=== PATIENT | female | born 1940 | race Caucasian/White ===

== ENCOUNTER 2020-10-18 16:54 | Emergency (ER) | payer OTHER ==
[~2020-10-18 16:54] MED LIST: ALAVERT10 MG PO; ANTIVERT 25MG T25 MG PO; ASPIR 8181 MG PO; AUGMENTIN 875-1 EACH PO; CARVEDILOL12.5 MG PO; CATAPRES 0.1MG0.1 MG PO; CEFUROXIME250 MG PO; COLACE 100MG C100 MG PO; COREG 12.5MG12.5 MG PO; COREG 3.125M3.125 MG PO; DICLOFENAC SODI25 MG PO; FEOSOL ELI220 MG/5 M PO; FEOSOL325 MG PO; HYDROCHLOROTHIA25 MG PO; HYDROXYZINE HCL10 MG PO; K-DUR TAB 20 M20 MEQ PO; K-TAB ER20 MEQ PO; LASIX40 MG PO; LINZESS145 MCG PO; LOPRESSOR 25 MG25 MG PO; MACROBID 100 M100 MG PO; MAG-OX 400 TAB400 MG PO; MELOXICAM7.5 MG PO; METFORMIN HCL500 M2 PO; MULTIVITAM9 MG/15 ML PO; MYCOSTATIN OINT15 GM EXT; MYRBETRIQ50 MG PO; NEURONTIN 300300 MG PO; NEURONTIN300 MG PO; NORVASC 5 MG TAB5 MG PO; PEPCID20 MG PO; POTASSIUM CHLO10 ME1 PO; POTASSIUM CHLO20 ME2 PO; PRAVASTATIN SOD20 MG PO; PRINIVIL10 MG PO; PROMETHAZINE HC25 M1 PO; PROMETHAZINE12.5 M1 PO; PROTONIX40 MG PO; SERTRALINE HCL100 MG PO; SINGULAIR10 MG PO; SYNTHROID100 MCG PO; TRAMADOL HCL50 MG PO; TYLENOL 325MG325 MG PO; VITAMIN D10000 UNIT PO; VOLTAREN EC 5050 MG PO; ZANAFLEX4 MG PO; ZITHROMAX250 MG PO; ZOFRAN ODT 4 MG4 MG SL; ZOFRAN4 MG PO; ZOLOFT50 MG PO; ZYVOX 600 MG T600 MG PO
[2020-10-18 17:52] LABS: HEMOGLOBIN 10.9 gm/dl (12.3-15.3); RED BLOOD COUNT 3.43 M/UL (4.00-5.10); WHITE BLOOD COUNT 8.1 K/UL (4.5-11.0)
== END 2020-10-19 04:55 | disposition short-term general hospital (02) ==
LOC: ER1 16:54
PROVIDERS: Emergency Medicine
DX: K92.2 Gastrointestinal hemorrhage, unspecified (principal); R10.9 Unspecified abdominal pain; J44.9 Chronic obstructive pulmonary disease, unspecified; I11.9 Hypertensive heart disease without heart failure
CPT/HCPCS: 71045; 80053; 82272; 83605; 85025; 85610; 85730; 86850; 86900; 86901; 93005; 99285; Q9967

== ENCOUNTER 2021-08-06 16:05 | Observation (INO) | payer OTHER ==
[~2021-08-06] VITALS: Ht 160 cm; Wt 68.5 kg
[2021-08-06 17:36] LABS: RED BLOOD COUNT 3.94 M/UL (4.00-5.10); WHITE BLOOD COUNT 18.4 K/UL (4.5-11.0)
[2021-08-07] MEDS ORDERED: LORATADINE10 MG PO (14:04)
[2021-08-08 04:30] LABS: HEMOGLOBIN 10.5 gm/dl (12.3-15.3)
[2021-08-08 04:31] LABS: RED BLOOD COUNT 3.43 M/UL (4.00-5.10); WHITE BLOOD COUNT 10.8 K/UL (4.5-11.0)
[2021-08-08 04:53] LABS: BUN/CREATININE RATIO 42 (0-10)
[2021-08-09 03:41] LABS: HEMOGLOBIN 10.9 gm/dl (12.3-15.3); RED BLOOD COUNT 3.54 M/UL (4.00-5.10); WHITE BLOOD COUNT 10.7 K/UL (4.5-11.0)
[2021-08-09 03:59] LABS: BUN/CREATININE RATIO 29 (0-10)
[2021-08-10 03:23] LABS: HEMOGLOBIN 10.3 gm/dl (12.3-15.3); RED BLOOD COUNT 3.36 M/UL (4.00-5.10); WHITE BLOOD COUNT 9.1 K/UL (4.5-11.0)
[2021-08-10 03:41] LABS: BUN/CREATININE RATIO 21 (0-10)
[2021-08-10] MEDS ORDERED: CEFUROXIME250 MG PO (10:23)
--- NOTE | 2021-08-10 15:31 | NUR ---
REPORT CALLED TO YANCY BLACKBURN
== END 2021-08-10 17:26 ==
LOC: ER1 16:05 → CDU 08-07 09:32 → M/S 08-07 09:32 → CDU 08-07 09:55 → 3 EAST 08-07 10:20 → CDU 08-07 10:23 → M/S 08-07 17:20
PROVIDERS: Physician Assistant; Physician Assistant Medical; ADMIT Internal Medicine
DX: N30.00 Acute cystitis without hematuria (principal); B96.20 Unspecified Escherichia coli [E. coli] as the cause of diseases classified elsewhere; Z20.822 Contact with and (suspected) exposure to COVID-19; E87.5 Hyperkalemia; E83.42 Hypomagnesemia; F03.90 Unspecified dementia, unspecified severity, without behavioral disturbance, psychotic disturbance, mood disturbance, and anxiety; I10 Essential (primary) hypertension; E03.9 Hypothyroidism, unspecified; J96.11 Chronic respiratory failure with hypoxia; J45.909 Unspecified asthma, uncomplicated; H91.90 Unspecified hearing loss, unspecified ear; Z88.2 Allergy status to sulfonamides; Z88.5 Allergy status to narcotic agent; Z91.040 Latex allergy status; Z99.81 Dependence on supplemental oxygen
CPT/HCPCS: 36415; 70450; 71045; 80048; 80053; 81001; 82550; 82553; 82962; 83605; 83735; 83874; 83880; 84100; 84132; 84439; 84443; 84484; 85025; 86140; 87077; 87086; 87186; 93005; 94760; 96374; 96376; 97116-GP-CQ; 97162; 97165; 97530; 99285; G0378; J0696; J3475; J7030; U0002

== ENCOUNTER 2021-10-09 21:59 | Observation (INO) | payer OTHER ==
[~2021-10-09] VITALS: Ht 160 cm; Wt 63.5 kg
[~2021-10-09 21:59] MED LIST changes: +LORATADINE10 MG PO; -PRAVASTATIN SOD20 MG PO; +SENNA LAXATIVE8.6 MG PO
[2021-10-09 22:54] LABS: HEMOGLOBIN 13.1 gm/dl (12.3-15.3); RED BLOOD COUNT 4.22 M/UL (4.00-5.10)
[2021-10-09 23:13] LABS: BUN/CREATININE RATIO 28 (0-10)
[2021-10-10] MEDS ORDERED: PRAVASTATIN SOD20 MG PO (08:46)
[2021-10-10] MEDS ORDERED: ACETAMINOPHEN500 M1 PO (11:41)
[2021-10-10] MEDS ORDERED: LACTULOSE10 GM/151 PO (11:49)
[2021-10-11 04:34] LABS: HEMOGLOBIN 11.5 gm/dl (12.3-15.3)
[2021-10-11 04:35] LABS: RED BLOOD COUNT 3.68 M/UL (4.00-5.10); WHITE BLOOD COUNT 11.5 K/UL (4.5-11.0)
[2021-10-12 06:37] LABS: HEMOGLOBIN 11.8 gm/dl (12.3-15.3); RED BLOOD COUNT 3.78 M/UL (4.00-5.10); WHITE BLOOD COUNT 11.3 K/UL (4.5-11.0)
[2021-10-12 07:31] LABS: BUN/CREATININE RATIO 25 (0-10)
[2021-10-12] MEDS ORDERED: VITAMIN D350 MC3 PO (12:00)
[2021-10-12] MEDS ORDERED: ZINC OXIDE2500 GM TP (12:02)
[2021-10-12] MEDS ORDERED: LEVOFLOXACIN500 MG PO (16:17)
[2021-10-13 03:43] LABS: HEMOGLOBIN 12.8 gm/dl (12.3-15.3); RED BLOOD COUNT 4.06 M/UL (4.00-5.10); WHITE BLOOD COUNT 11.8 K/UL (4.5-11.0)
[2021-10-13 04:40] LABS: BUN/CREATININE RATIO 25 (0-10)
== END 2021-10-13 17:55 ==
LOC: ER1 21:59 → MED SURG 4 10-10 11:20 → CDU 10-10 11:20 → MED SURG 4 10-10 11:20
PROVIDERS: Emergency Medicine; Physician Assistant Medical; ADMIT Internal Medicine
DX: G93.40 Encephalopathy, unspecified (principal); Z20.822 Contact with and (suspected) exposure to COVID-19; E03.9 Hypothyroidism, unspecified; D72.829 Elevated white blood cell count, unspecified; F03.90 Unspecified dementia, unspecified severity, without behavioral disturbance, psychotic disturbance, mood disturbance, and anxiety; J96.11 Chronic respiratory failure with hypoxia; N39.0 Urinary tract infection, site not specified; E83.42 Hypomagnesemia; E87.6 Hypokalemia; I10 Essential (primary) hypertension; R00.1 Bradycardia, unspecified; J45.909 Unspecified asthma, uncomplicated; E86.0 Dehydration; Z79.82 Long term (current) use of aspirin; Z79.899 Other long term (current) drug therapy; Z88.2 Allergy status to sulfonamides; Z88.5 Allergy status to narcotic agent; Z91.040 Latex allergy status; Z79.890 Hormone replacement therapy; Z87.440 Personal history of urinary (tract) infections
CPT/HCPCS: ECHO; 36415; 70450; 70496; 70498; 70551; 71045; 80048; 80053; 81001; 82550; 82553; 83540; 83550; 83605; 83735; 83880; 84132; 84484; 85025; 85027; 85652; 86140; 87040; 87086; 93005; 93306; 94760; 96372; 96374; 96375; 96376; 97116-GP-CQ; 97161; 97165; 97530-GP-CQ; 99285; C1751; G0378; J0360; J0696; J1650; J2405; J2543; J2550; J3475; Q9967; U0002